=== PATIENT | female | born 1995 | race Caucasian/White ===

== ENCOUNTER 2018-12-12 09:55 | Emergency (ER) | payer OTHER ==
[2018-12-12 10:12] VITALS: BP 103/54; PULSE 103; TEMP 97.9; BMI 18.3
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
== END 2018-12-12 11:57 | disposition home or self-care (01) ==
LOC: JERFT 09:55
DX: S13.4XXA Sprain of ligaments of cervical spine, initial encounter (principal); V73.6XXA Passenger on bus injured in collision with car, pick-up truck or van in traffic accident, initial encounter; Y92.414 Local residential or business street as the place of occurrence of the external cause; Y99.0 Civilian activity done for income or pay; Y93.89 Activity, other specified
CPT/HCPCS: 99282-25